=== PATIENT | female | born 1945 | race Caucasian/White ===

== ENCOUNTER 2016-12-06 13:00 | Emergency (ER) | payer BC, OTHER ==
[~2016-12-06] VITALS: Ht 160 cm; Wt 97.2 kg
[~2016-12-06 13:00] MED LIST: AMLODIPINE BESYL5 MG; AMLODIPINE BESYL5 MG PO; ASPIR-LOW81 MG PO; AUGMENTIN500 MG PO; AVELOX400 MG; BACTRIM,SEPT1 TABLET PO; BENTYL10 MG PO; BENTYL20 MG PO; CELEBREX200 MG PO; CENTRUM SILV1 TABLE1 PO; CITRUCEL500 MG PO; CRESTOR10 MG PO; CRESTOR5 MG PO; CYMBALTA60 MG; Coumadin,Jantoven PO; DEXILANT60 MG; Ecotrin PO; FLEET ENEMA-AD118 ML PR; Feosol PO; HYZAAR 50-121 TABLE1 PO; Imodium PO; KEFLEX500 MG PO; LOSARTAN-HCTZ1 EAC1 PO; LOSARTAN-HCTZ1 EACH; Lovenox SC; MIRALAX255 GM PO; MOBIC7.5 MG PO; MULTIVITAMIN1 EAC2 PO; NORVASC5 MG PO; Norvasc PO; OMEPRAZOLE40 M1 PO; OXYCODONE HCL15 MG PO; OXYCONTIN10 MG PO; OXYCONTIN15 MG PO; OXYCONTIN20 MG PO; PERCOCET 5/31 TABLET PO; RYBIX ODT50 MG PO; SENOKOT S,PE1 TABLET PO; THERAGRAN1 TABLET PO; ULTRAM50 MG PO; Vicodin,Lortab 5/500 PO; XARELTO10 MG PO; ZOFRAN ODT4 MG PO; ZOFRAN4 MG PO; oxyCODONE PO
[2016-12-06 13:41] LABS: HEMATOCRIT 43.2 % (36.0-46.0); MCH 31.7 PG (29.0-34.0); MCV 93.1 FL (83-99); MEAN PLAT.VOLUME 9.8 uM^3 (9.5-12.4); PLATELET COUNT 171 K/uL (156-360); RBC DIS.WIDTH-CV 13.3 % (11.8-14.6); RBC DIS.WIDTH-SD 43.7 % (39-53); RED BLOOD COUNT 4.64 M/uL (3.80-5.20); WHITE BLOOD COUNT 4.5 K/uL (4.1-10.2)
[2016-12-06 13:52] LABS: CHLORIDE 104 mEq/L (99-109); POTASSIUM 3.9 mEq/L (3.7-5.4); SODIUM 139 mEq/L (136-147)
[2016-12-06 13:54] LABS: GLUCOSE 95 mg/dL (70-99)
[2016-12-06 13:55] LABS: ANION GAP 12 MEQ/L (2-14)
[2016-12-06 13:57] LABS: GFR ESTIMATE (CALCULATED) > 59 mL/min/
[2016-12-06 13:58] LABS: UREA NITROGEN (BUN) 15 mg/dL (9-23)
[2016-12-06 14:03] LABS: TROP-I INTERPRETATION NEGATIVE; TROPONIN-I < 0.01 ng/mL (0.0-0.30)
[2016-12-06 17:25] LABS: TROP-I INTERPRETATION NEGATIVE; TROPONIN-I < 0.01 ng/mL (0.0-0.30)
[2016-12-06] MEDS ORDERED: ROSUVASTATIN CA20 MG PO (17:55)
[2016-12-06 17:59] VITALS: BP 167/82
== END 2016-12-06 17:50 | disposition home or self-care (01) ==
LOC: EME 13:00
PROVIDERS: Emergency Medicine
DX: R07.9 Chest pain, unspecified (principal); I10 Essential (primary) hypertension; E78.5 Hyperlipidemia, unspecified; Z88.6 Allergy status to analgesic agent
CPT/HCPCS: 71020; 80048; 84484; 85027; 93005; 99281; 99284

== ENCOUNTER 2017-05-25 20:36 | Emergency (ER) | payer OTHER, BC ==
[~2017-05-25] VITALS: Ht 160 cm; Wt 96.3 kg
[~2017-05-25 20:36] MED LIST changes: +ROSUVASTATIN CA20 MG PO
[2017-05-25 22:38] LABS: EOSINOPHIL (%) 1.2 % (0-5); EOSINOPHIL COUNT 0.1 K/uL (0-0.3); HEMATOCRIT 45.1 % (36.0-46.0); IMMATURE GRANULOCYTE (%) 0.4 % (0.0-0.7); INSTRUMENT ABS NEUTROPHIL CT 6.6 K/uL; LYMPHOCYTE COUNT 1.3 K/uL (1.0-2.8); MCH 30.6 PG (29.0-34.0); MCHC 32.8 G/DL (30.0-36.0); MCV 93.2 FL (83-99); MONOCYTE (%) 6.2 % (3-12); MONOCYTE COUNT 0.5 K/uL (0-0.8); NEUTROPHIL COUNT 6.6 K/uL (1.8-6.4); PLATELET COUNT 171 K/uL (156-360); RBC DIS.WIDTH-CV 12.8 % (11.8-14.6); RBC DIS.WIDTH-SD 44.5 % (39-53); RED BLOOD COUNT 4.84 M/uL (3.80-5.20); WHITE BLOOD COUNT 8.5 K/uL (4.1-10.2)
[2017-05-25 22:50] LABS: CHLORIDE 106 mEq/L (99-109); POTASSIUM 3.2 mEq/L (3.7-5.4); SODIUM 143 mEq/L (136-147)
[2017-05-25 22:53] LABS: GLUCOSE 118 mg/dL (70-99)
[2017-05-25 22:54] LABS: ANION GAP 10 MEQ/L (2-14)
[2017-05-25 22:55] LABS: TOTAL BILIRUBIN 0.5 mg/dL (0.0-1.0)
[2017-05-25 22:56] LABS: ALKALINE PHOSPHATASE 79 IU/L (3-129); GFR ESTIMATE (CALCULATED) 58 mL/min/
[2017-05-25 22:57] LABS: UREA NITROGEN (BUN) 18 mg/dL (9-23)
[2017-05-25 23:00] LABS: LIPASE 14 U/L (1.0-51.0)
[2017-05-25 23:12] LABS: ADD MIUA? YES; BILIRUBIN NEGATIVE; BLOOD MODERATE; COLOR YELLOW ((YELLOW)); GLUCOSE (STRIP) NEGATIVE; KETONES 5; LEUKOCYTES NEGATIVE; NITRITE NEGATIVE; PROTEIN (STRIP) NEGATIVE; SPECIFIC GRAVITY 1.015 (1.000-1.030); UROBILINOGEN 0.2 MG/DL (0.2-1.0)
[2017-05-25 23:27] LABS: BACTERIA NONE SEEN /HPF; EPITHELIAL CELLS RARE /HPF; HYALINE CASTS 0-5 /LPF; MUCUS TRACE /LPF; UCUL ADDED? NO; WHITE BLOOD CELLS 0-5 /HPF (0-5)
[2017-05-26] MEDS ORDERED: CARAFATE1 GM PO (02:08)
[2017-05-26 02:28] VITALS: BP 128/72
== END 2017-05-26 02:40 | disposition home or self-care (01) ==
LOC: EME 20:36
PROVIDERS: Emergency Medicine
DX: R10.31 Right lower quadrant pain (principal); N28.89 Other specified disorders of kidney and ureter; K86.9 Disease of pancreas, unspecified; Z98.890 Other specified postprocedural states; E78.5 Hyperlipidemia, unspecified; I10 Essential (primary) hypertension; Z88.6 Allergy status to analgesic agent; Z88.1 Allergy status to other antibiotic agents; Z88.8 Allergy status to other drugs, medicaments and biological substances; Z87.891 Personal history of nicotine dependence
CPT/HCPCS: 74177; 80053; 81003; 83690; 85025; 99281; 99285; J2405; J3010; J7030